=== PATIENT | female | born 1990 | race Hispanic/Latino ===

== ENCOUNTER 2018-10-25 22:02 | Observation (INO) ==
[2018-10-25 22:54] LABS: BILIRUBIN URINE NEGATIVE (NEGATIVE); BLOOD URINE 4+ (NEGATIVE); CLARITY CLEAR (CLEAR); COLOR YELLOW; GLUCOSE URINE NEGATIVE (NEGATIVE); KETONE URINE NEGATIVE (NEGATIVE); LEUKOCYTES URINE TRACE (NEGATIVE); NITRITE URINE NEGATIVE (NEGATIVE); PROTEIN URINE NEGATIVE (NEGATIVE); URINE BACTERIA 1+ /HFP; URINE EPITHELIAL CELLS <10 /HPF (<10); URINE SOURCE CLEAN CATCH; URINE WBC <10 /HPF (<10); UROBILINOGEN URINE NORMAL
[2018-10-25 22:59] LABS: AGAP 15; ALBUMIN 3.8 g/dL (3.5-5.0); ALKALINE PHOSPHATASE 73 U/L (32-104); BUN 7 mg/dL (8-22); CALCIUM 9.1 mg/dL (8.8-10.2); CHLORIDE 102 mmol/L (98-107); CK PROFILE 101 U/L (24-173); COSMO 271; CREATININE 0.6 mg/dL (0.5-0.9); ESTIMATED GFR > 60; GLUCOSE 109 mg/dL (70-104); GOT 12 U/L (10-30); GPT 8 U/L (10-36); INR 1.14; POTASSIUM 3.4 mmol/L (3.5-5.1); PROTIME 15.2 Seconds (11.0-16.0); PTT 32.5 Seconds (22.3-41.8); SODIUM 136 mmol/L (136-145); TCO2 20 mmol/L (25-35); TOTAL PROTEIN 7.8 g/dL (6.3-8.3)
[2018-10-25 23:01] LABS: BASO# 0.02 X1000 (0.0-0.2); BASO% 0.1 % (0.0-0.8); EOS# 0.01 X1000 (0.0-0.7); EOS% 0.1 % (0.0-10.0); HEMOGLOBIN 8.9 g/dL (12.0-16.0); IMM GRAN# 0.04 X1000 (0.0-0.04); IMM GRAN% 0.2 % (0.0-0.5); LYMPH# 2.14 X1000 (1.2-3.4); LYMPH% 11.3 % (20.5-51.1); MCH 21.7 PG (27-31); MCHC 31.8 g/dL (33-37); MCV 68.3 FL (81-99); MONO# 1.75 X1000 (0.11-0.59); MONO% 9.2 % (1.7-9.3); MPV 12.3 FL (7.4-10.4); NEUT# 15.03 X1000 (1.4-6.5); NEUT% 79.1 % (42.2-75.2); PLT 360 X1000 (130-400); RDW 16.3 % (11.5-14.5); WBC 18.99 X1000 (4.8-10.8)
[2018-10-25 23:02] LABS: UR AMPHETAMINES QUAL NONE DETECTED (NONE DETECT); UR BARBITUATES QUAL NONE DETECTED (NONE DETECT); UR BENZODIAZEPIN QUAL NONE DETECTED (NONE DETECT); UR COCAINE QUAL NONE DETECTED (NONE DETECT); UR METHADONE QUAL NONE DETECTED (NONE DETECT); UR METHAMPHETAMINE QUAL NONE DETECTED (NONE DETECT)
[2018-10-25 23:03] LABS: UR CANNABINOIDS QUAL NONE DETECTED (NONE DETECT); UR OPIATES QUAL NONE DETECTED (NONE DETECT); UR OXYCODONE QUAL NONE DETECTED (NONE DETECT); UR PCP QUAL NONE DETECTED (NONE DETECT); UR PROPOXYPHENE QUAL NONE DETECTED (NONE DETECT); UR TCA QUAL NONE DETECTED (NONE DETECT)
[2018-10-25 23:09] LABS: BANDS 1 % (0-1); HYPOCHROM 2+; LYMPHS 9 % (21-51); MICROCYTOSIS 2+; MONO 10 % (1-9); POIKILOCYTOSIS 2+; SEGS 80 % (42-75); TARGET CELLS 2+
[2018-10-25 23:10] LABS: LARGE PLATELETS OCCASIONAL
[2018-10-25] MEDS ORDERED: XYLOCAINE-MPF 1% INJ ONE (23:46)
[2018-10-26] MEDS ORDERED: ZOFRAN IV ONE (00:22)
[2018-10-26] MEDS ORDERED: MORPHINE IV ONE (00:22)
[2018-10-26] MEDS ORDERED: VANCOMYCIN 1 GM/NS 1 GM/250 ML IVPB IV ONE (00:31)
--- NOTE | 2018-10-26 00:44 | PROVIDER DOCUMENTATION ---
This chart was entered by Betty Birmingham Scribe, acting as scribe for Florencio Valencia MD. HPI-Rash/Wound/ReCheck - General Chief Complaint: Abscess Stated Complaint: FEMALE Time Seen by Provider: 10/25/18 22:22 Source: patient Allergies/Adverse Reactions: Allergies Allergy/AdvReac Type Severity Reaction Status Date / Time No Known Allergies Allergy Verified 06/15/18 15:26 Home Medications: Home Medication List Medication Instructions Recorded Confirmed Last Taken Type NK [No Home Medications] 10/25/18 10/25/18 Unknown History - History of Present Illness-Dermatology Nature of Presenting Problem: pt is a 28 yr old female presenting with abscess to labia, fever/chills x 3 days. Location: reports: genitalia Quality: reports: painful Severity: reports: moderate Onset/Duration: reports: 3 days ago Timing: reports: getting worse Context/Associated Symptoms: reports: tender area Identifiable cause?: No Exposure: reports: unknown cause Locality of Occurance: Home Similar Symptoms Previously?: No Recently seen or treated by another doctor?: No Review of Systems - Adult - REVIEW OF SYSTEMS - ADULT Constitutional: reports: chills, fever. denies: fatique Eyes: reports: no symptoms reported Cardiovascular: reports: no symptoms reported Respiratory: denies: shortness of breath Gastrointestinal: reports: no symptoms reported Genitourinary: denies: dysuria, frequency, flank pain Musculoskeletal: reports: no symptoms reported Integumentary: reports: skin sores/ulcer (labia) Neurological: reports: no symptoms reported Psychiatric: reports: no symptoms reported Endocrine: reports: no symptoms reported Hematologic/Lymphatic: reports: no symptoms reported Allergic/Immunologic: reports: no symptoms reported All Other Systems: Reviewed and Negative Past History - Adult - PAST MEDICAL HISTORY-ADULT Review of Records: reports: Nursing Assessment Review, Medications Reviewed, Social history reviewed & non-contributory. Major Childhood Illnesses: reports: denies history Cardiovascular: reports: denies history Respiratory: reports: denies history Gastrointestinal: reports: denies history Obstetrical/Gynecological: reports: denies history Genitourinary: reports: denies history Musculoskeletal: reports: denies history Neurological: reports: denies history Psychiatric: reports: anxiety Endocrine/Immune: reports: other (hypoglycemia) Other Conditions: reports: denies history - PRIOR SURGERIES/PROCEDURES Surgical/Procedure History: reports: - IMMUNIZATION STATUS Childhood Immunizations: See Nurse Assessment Flu Vaccine: See Nurse Assessment - FAMILY HISTORY Family History: reviewed, not pertinent - SOCIAL HISTORY Smoking: denies Substance Use: denies Living Situation: family Physical Exam-General - PHYSICAL EXAM-ADULT Initial Vital Signs Reviewed: Yes - CONSTITUTIONAL General Appearance: alert, no apparent distress - EYES Eyes: PERRL/EOMI - HEAD, EARS, NOSE, MOUTH & THROAT HENMT: normocephalic/atraumatic, moist mucous membranes - NECK Neck: full range of motion, supple, normal inspection - RESPIRATORY Respiratory: chest non-tender, lungs clear, normal breath sounds - CARDIOVASCULAR Cardiovascular: normal peripheral pulses, tachycardia (143) - GASTROINTESTINAL (ABDOMEN) Abdominal Exam: non tender, soft - LYMPHATIC Lymphatic: no adenopathy - SKIN Integumentary: normal color, normal turgor, warm/dry, other (bartholin cyst on left labia) - NEUROLOGIC Neurologic: grossly normal, no motor/sensory deficits - PSYCHIATRIC Psych/Mental Status: normal mood/affect, normal thought content, normal thought process, oriented x 3 Progress - PLAN OF CARE/RESULTS Progress/Plan/Lab Results: Vital Signs - 8 hr 10/25/18 22:09 Temperature 100.1 F H Pulse Rate 143 H Respiratory Rate 20 Blood Pressure 132/95 O2 Sat by Pulse Oximetry 99 Bedside Urine ED: Urine Bedside Start: 10/25/18 22:16 Freq: ORDERED Status: Active Protocol: Activity Type Activity Date Activity User E-Sign Co-Sign Detail Recorded Client Recorded Date Recorded By Document 10/26/18 00:15 [id number] 10/26/18 00:16 [id number] 10/26/18 00:15 Point of Care [Bedside Point of Care] -Lot # [id number] - Results Negative -Control Line Visible? Yes Laboratory Results - last 24 hr 10/25/18 10/25/18 10/25/18 22:15 22:15 22:25 WBC 18.99 H RBC 4.10 L Hgb 8.9 L Hct 28.0 L MCV 68.3 L MCH 21.7 L MCHC 31.8 L RDW Std Deviation 16.3 H Plt Count 360 MPV 12.3 H Immature Gran % (Auto) 0.2 Neut % (Auto) 79.1 H Lymph % (Auto) 11.3 L [place] % (Auto) 9.2 Eos % (Auto) 0.1 Baso % (Auto) 0.1 Immature Gran # (Auto) 0.04 Neut # (Auto) 15.03 H Lymph # (Auto) 2.14 [place] # (Auto) 1.75 H Eos # (Auto) 0.01 Baso # (Auto) 0.02 Segmented Neutrophils 80 H Band Neutrophils 1 Lymphocytes 9 L Monocytes 10 H Hypochromia 2+ Large Platelets OCCASIONAL Poikilocytosis 2+ Microcytosis 2+ Target Cells 2+ PT INR PTT (Actin FS) Sodium Potassium Chloride Carbon Dioxide Anion Gap BUN Creatinine Estimated GFR/1.73 m2 BUN/Creatinine Ratio Glucose Calculated Osmolality Calcium Total Bilirubin AST ALT Alkaline Phosphatase Creatine Kinase Troponin T Total Protein Albumin Globulin Albumin/Globulin Ratio Plasma Lactate Urine Source CLEAN CATCH Urine Color YELLOW Urine Clarity CLEAR Urine pH 7.0 Ur Specific [place] 1.000 Urine Protein NEGATIVE Urine Ketones NEGATIVE Urine Blood 4+ Urine Nitrite NEGATIVE Urine Bilirubin NEGATIVE Urine Urobilinogen NORMAL Urine Microscopic RBC 10-20 A Urine WBC TRACE A Urine Microscopic WBC <10 Ur Epithelial Cells <10 Urine Bacteria 1+ Urine Glucose NEGATIVE Urine Opiates Screen NONE DETECTED Ur Oxycodone Screen NONE DETECTED Urine Methadone Screen NONE DETECTED U Propoxyphene Qual NONE DETECTED Ur Barbituates Screen NONE DETECTED Ur Tricyclics Screen NONE DETECTED Ur Phencyclidine Scrn NONE DETECTED Ur Amphetamines Screen NONE DETECTED U Methamphetamines Scrn NONE DETECTED U Benzodiazepines Scrn NONE DETECTED Urine Cocaine Screen NONE DETECTED U Cannabinoids Screen NONE DETECTED 10/25/18 10/25/18 10/25/18 22:25 22:25 22:25 WBC RBC Hgb Hct MCV MCH MCHC RDW Std Deviation Plt Count MPV Immature Gran % (Auto) Neut % (Auto) Lymph % (Auto) [place] % (Auto) Eos % (Auto) Baso % (Auto) Immature Gran # (Auto) Neut # (Auto) Lymph # (Auto) [place] # (Auto) Eos # (Auto) Baso # (Auto) Segmented Neutrophils Band Neutrophils Lymphocytes Monocytes Hypochromia Large Platelets Poikilocytosis Microcytosis Target Cells PT 15.2 INR 1.14 PTT (Actin FS) 32.5 Sodium 136 Potassium 3.4 L Chloride 102 Carbon Dioxide 20 L Anion Gap 15 BUN 7 L Creatinine 0.6 Estimated GFR/1.73 m2 > 60 BUN/Creatinine Ratio 12 Glucose 109 H Calculated Osmolality 271 Calcium 9.1 Total Bilirubin 1.20 H AST 12 ALT 8 L Alkaline Phosphatase 73 Creatine Kinase 101 Troponin T < 0.010 Total Protein 7.8 Albumin 3.8 Globulin 4.0 Albumin/Globulin Ratio 1.0 Plasma Lactate Urine Source Urine Color Urine Clarity Urine pH Ur Specific [place] Urine Protein Urine Ketones Urine Blood Urine Nitrite Urine Bilirubin Urine Urobilinogen Urine Microscopic RBC Urine WBC Urine Microscopic WBC Ur Epithelial Cells Urine Bacteria Urine Glucose Urine Opiates Screen Ur Oxycodone Screen Urine Methadone Screen U Propoxyphene Qual Ur Barbituates Screen Ur Tricyclics Screen Ur Phencyclidine Scrn Ur Amphetamines Screen U Methamphetamines Scrn U Benzodiazepines Scrn Urine Cocaine Screen U Cannabinoids Screen 10/25/18 22:25 WBC RBC Hgb Hct MCV MCH MCHC RDW Std Deviation Plt Count MPV Immature Gran % (Auto) Neut % (Auto) Lymph % (Auto) [place] % (Auto) Eos % (Auto) Baso % (Auto) Immature Gran # (Auto) Neut # (Auto) Lymph # (Auto) [place] # (Auto) Eos # (Auto) Baso # (Auto) Segmented Neutrophils Band Neutrophils Lymphocytes Monocytes Hypochromia Large Platelets Poikilocytosis Microcytosis Target Cells PT INR PTT (Actin FS) Sodium Potassium Chloride Carbon Dioxide Anion Gap BUN Creatinine Estimated GFR/1.73 m2 BUN/Creatinine Ratio Glucose Calculated Osmolality Calcium Total Bilirubin AST ALT Alkaline Phosphatase Creatine Kinase Troponin T Total Protein Albumin Globulin Albumin/Globulin Ratio Plasma Lactate 1.4 Urine Source Urine Color Urine Clarity Urine pH Ur Specific [place] Urine Protein Urine Ketones Urine Blood Urine Nitrite Urine Bilirubin Urine Urobilinogen Urine Microscopic RBC Urine WBC Urine Microscopic WBC Ur Epithelial Cells Urine Bacteria Urine Glucose Urine Opiates Screen Ur Oxycodone Screen Urine Methadone Screen U Propoxyphene Qual Ur Barbituates Screen Ur Tricyclics Screen Ur Phencyclidine Scrn Ur Amphetamines Screen U Methamphetamines Scrn U Benzodiazepines Scrn Urine Cocaine Screen U Cannabinoids Screen Orders Category Date Time Status Admit - [facility] Routine [id number] 10/26/18 00:37 Active Activity - Up Ad Laura ORDERED Care 10/26/18 00:37 Active Cardiac Monitoring DIRECTED Care 10/25/18 22:31 Active ED: Urine Bedside ORDERED Care 10/25/18 22:16 Active I and D Set up DIRECTED Care 10/25/18 23:46 Active Notify MD of + Sepsis Screen NOW Care 10/25/18 22:31 Active Notify Physician As Ordered Care 10/25/18 22:31 Active Saline Loc DIRECTED Care 10/26/18 00:37 Active Vital Signs Order ROUTINE Care 10/26/18 00:37 Active Regular Diet Diet 10/26/18 00:39 Active BLOOD CULTURE [BLDCUL] Stat Lab 10/25/18 22:31 Ordered CBC WITH DIFF [HEME] Stat Lab 10/25/18 22:25 Completed CK PROFILE [SP CHEM] Stat Lab 10/25/18 22:25 Completed COMPREHENSIVE METABOLIC PANEL [CHEM] Stat Lab 10/25/18 22:25 Completed LACTATE, PLASMA [CHEM] Q3H Lab 10/25/18 22:25 Completed PROTIME WITH INR [COAG] Stat Lab 10/25/18 22:25 Completed PTT [COAG] Stat Lab 10/25/18 22:25 Completed TROPONIN T Stat Lab 10/25/18 22:25 Completed UIBC W TOTAL IRON [CHEM] Stat Lab 10/26/18 00:25 Ordered URINE CULTURE [RM] Routine Lab 10/25/18 22:54 Ordered URINE DRUG SCREEN PL Stat Lab 10/25/18 22:15 Completed WOUND CULTURE INC GRAM STAIN [RM] Routine Lab 10/26/18 00:22 Ordered urinalysis [URINALYSIS PL W/POSS RFLX CULT] [URINALYSIS Lab 10/25/18 22:15 Completed ] Stat 0.9% Sodium Chloride Inj [Ns] 2,000 ml Med 10/26/18 00:45 Active IV 250 mls/hr Lidocaine 1% Pf [Xylocaine-Mpf 1%] Med 10/25/18 23:46 Discontinued 5 ml INJ NOW ONE Morphine Med 10/26/18 00:22 Discontinued 4 mg IV NOW ONE Ondansetron [Zofran] Med 10/26/18 00:22 Discontinued 4 mg IV NOW ONE Vancomycin 1 gm/Ns Med 10/26/18 00:31 Active 1 gm in 250 ml IV NOW Oxygen Device Stat Oth 10/25/18 22:31 Active Transfer/Admit Order [TRANSFER] Routine Transfer 10/26/18 00:41 Ordered Result Diagrams: 10/25/18 22:25 10/25/18 22:25 - CONSULTS/PCP/HOSPITALIST Notification #1 *Consult/PCP/Hospitalist*: cheathem Time Discussed: 00:44 Consult Disposition: Admit Procedures - INCISION & DRAINAGE Site: left labia Abscess Type: Bartholin's Cyst Prepped with: Sandy Aparicio Anesthetic: 1%, Lidocaine/Xylocaine Volume of Anesthetic (ml's): 5 Blade Size: 11 Packing placed?: No (word catheter placed) Drainage: Large Amount, Purulent Departure - Departure Date of Disposition Decision: 10/26/18 Time of Disposition Decision: 00:42 DIAGNOSIS: Sepsis Qualifiers: Sepsis type: sepsis due to unspecified organism Qualified Code(s): A41.9 - Sepsis, unspecified organism Disposition: ADMITTED INPATIENT 09 Certified Medical Emergency: Emergent Condition: Stable Additional Freetext Instructions: ED Follow Up Instructions: You have been treated by a care provider in the Emergency Department. These instructions are being provided to you so you can have an understanding of how to care for yourself upon discharge. Upon discharge from the Emergency Department, you are responsible for making arrangements for follow-up care by a physician of your choice. Take all prescribed medications as directed. Return to the Emergency Department immediately for any new or worsening symptoms. You may call the Physician Referral phone number at [phone] to obtain a list of Physicians who are taking new patients. Referrals and Follow-Ups: None,PCP [Primary Care Provider] - Discharge Education: Incision and Drainage, Care After, Bartholin Cyst or Abscess, [id number] - Critical Care Note This patient required my direct & personal management of CC.: No Attestation - Physician/ GENE Attestation The physician spent face to face time with patient:: Yes Advanced Practice Provider documentation review:: Supervising physician onsite and consulted in the evaluation and care of this patient. The physician did have a face to face encounter with the patient. This chart was documented by the indicated scribe, (Betty Birmingham Scribe) and accurately reflects the services I performed and decisions made by me, Florencio Valencia MD, as attested by the provider's signature.
[2018-10-26] MEDS: NS 2,000 ML IV SCH ×4 (00:52→18:55)
[2018-10-26 01:08] LABS: IRON SATURATION 3 %; TIBC 389 ug/dL; TOTAL IRON 13 ug/dL (49-151); UNBOUND IRON 376 ug/dL (112-346)
[2018-10-26] MEDS ORDERED: ZOFRAN IV PRN (02:38)
[2018-10-26] MEDS ORDERED: MORPHINE IV PRN (02:38)
[2018-10-26] MEDS: TYLENOL PO PRN ×2 (02:50→09:56)
[2018-10-26] MEDS ORDERED: ZITHROMAX PO ONE (08:44)
[2018-10-26] MEDS ORDERED: FLAGYL PO ONE (08:45)
[2018-10-26] MEDS ORDERED: ROCEPHIN 1 GM in NS 50 ML IV SCH (08:45)
[2018-10-26 12:03] LABS: AGAP 13; ALKALINE PHOSPHATASE 66 U/L (32-104); BUN 6 mg/dL (8-22); CALCIUM 7.9 mg/dL (8.8-10.2); CHLORIDE 108 mmol/L (98-107); COSMO 282; CREATININE 0.5 mg/dL (0.5-0.9); ESTIMATED GFR > 60; GLUCOSE 119 mg/dL (70-104); GOT 53 U/L (10-30); GPT 13 U/L (10-36); SODIUM 142 mmol/L (136-145); TCO2 21 mmol/L (25-35); TOTAL PROTEIN 6.7 g/dL (6.3-8.3)
[2018-10-26 12:13] LABS: HEMATOCRIT 24.7 % (37.0-47.0); HEMOGLOBIN 7.8 g/dL (12.0-16.0); MCH 21.8 PG (27-31); MCHC 31.6 g/dL (33-37); MPV 11.6 FL (7.4-10.4); RBC 3.58 XMIL (4.2-5.4); RDW 16.2 % (11.5-14.5); WBC 13.99 X1000 (4.8-10.8)
[2018-10-26 13:40] VITALS: BP 111/67
[2018-10-26] MEDS ORDERED: KLOR-CON PO ONE (15:48)
--- NOTE | 2018-10-26 15:52 | HISTORY AND PHYSICAL ---
CHIEF COMPLAINT: Abscess to labia. HISTORY OF PRESENT ILLNESS: This is a 28-year-old female who presented to the emergency room complaining of 3 days of left-sided labial pain with fevers and chills. She states that this started out as a small area about 4 days ago that she noticed after shaving and that it has gradually increased to the point that she was unable to walk without significant pain. She also reported a fever of 100 to 102 over the last 3 days. She denied any vaginal or labial drainage. PAST MEDICAL HISTORY: Anxiety. PAST SURGICAL HISTORY: . SOCIAL HISTORY: She denies alcohol, tobacco, or illicit drug use. ALLERGIES: No known drug allergies. HOME MEDICATIONS: None. REVIEW OF SYSTEMS: Discussed with the patient with pertinent positives stated in the HPI. She denied any syncope, dizziness, chest pain, palpitations, shortness of breath, cough; any night sweats; any nausea, vomiting, diarrhea, constipation, black or bloody vomitus or stools; any hematuria, dysuria, frequency, urgency. PHYSICAL EXAMINATION: GENERAL: This is a 28-year-old female who is sitting up in the bed in no distress. VITAL SIGNS: Blood pressure is 111/67 with a heart rate of 95, respirations are 18, temperature is 98 degrees with room air saturations 100%. EYES: Pupils equal, round, react to light. EOMs are intact. Sclerae anicteric. HEENT: Head is normocephalic, atraumatic. Mucous membranes are moist. NECK: Supple with trachea midline. CARDIOVASCULAR: Regular rate and rhythm. S1, S2 appreciated. She has no lower extremity edema with peripheral pulses palpable x4 extremities. PULMONARY: Breath sounds are clear with no increased work of breathing noted. Chest rises and falls symmetrically with respiration. GASTROINTESTINAL: Abdomen is soft, nontender, nondistended with bowel sounds in all 4 quadrants. SKIN: Warm and dry. GENITOURINARY: She is status post I D of a left Bartholin cyst with Word catheter noted in place with serous drainage. NEUROLOGIC: She is alert and oriented x3. LABORATORY DATA: WBC is 18.9 with hemoglobin 8.9, hematocrit 28, platelets 360,000. Sodium 136, potassium 3.4, BUN 7, creatinine 0.6 with a glucose of 109. Urinalysis reveals 4+ blood with 10 to 20 microscopic red blood cells. Urine drug screen reveals none detected. Blood cultures, urine culture and wound culture are pending. The urine was negative ASSESSMENT AND PLAN: 1. Bartholin's cyst. Word catheter is in place. We will start sitz baths 4 times a day and monitor. Of note, there is an area surrounding Word catheter that is erythemic about quarter sized. She has no fluctuance noted. No tract can be felt. We will treat for STDs and follow. 2. Leukocytosis. She was given vancomycin in the emergency room as well as Rocephin. We will continue the Rocephin. We will add Zithromax as she does have a cough. Of note, she will be treated with a gram of azithromycin, 2 g of Flagyl, as well as continued Rocephin. We will monitor. Dictated by ELVIA Ochoa for Isael Martines MD This chart was documented by, ELVIA Ochoa and accurately reflects the services performed, treatment plan and medical decisions as attested by the providers signature Isael Martines MD. cc: ELVIA Ochoa MD
--- NOTE | 2018-10-26 17:23 | CONSULTATION ---
DATE OF CONSULTATION: 10/26/2018 REASON FOR CONSULTATION: Replacement of Word catheter. CONSULTATION NOTE: Patient is a 28-year-old, G1, P0, admitted through the emergency room on 10/25/2018 for complaints of labial abscess and fevers and chills for 3 days. The patient does shave her genital area and reports that it started out as a little tenderness and then developed into more of a boil mass that was tender. Temperature in the emergency room was 100.1 with a white count of 18.99. She was diagnosed with a Bartholin abscess for which lidocaine was injected and the Bartholin gland was incised in the emergency room and Word catheter was placed. Large amount of purulent drainage was obtained. Drainage was cultured. Culture itself is still pending. Blood cultures were also obtained and still pending at present time. She was admitted to the hospital and treated with ceftriaxone as well as Zithromax to cover STD. Currently placed on vancomycin per hospitalist/nurse practitioner. Vital signs today revealed T-max of a 100.3 degrees at 4 a.m., temperature current 98, pulse rate 109, blood pressure 108/69, 100% on room air. Repeat CBC this morning revealed white count dropped from 18.99 to 13.99, hemoglobin currently at 7.8, hematocrit 24.7, platelet count 264,000. There has been no extension of the labial abscess and it has drained quite well. However the patient was up to the restroom and the Word catheter fell out. I was asked to replace Word catheter. Upon my evaluation patient alert and oriented x3. No acute distress. The patient looks to be doing quite well. On examination, no lymphadenopathy palpated. There is mild swelling of the left labia that was noted but no tautness to the skin itself. Minimal erythema lower half of the labia to mid labia. On palpation there is no tracking of any abscess into the vaginal vault. I could see where the incision was made on the medial surface of the labia towards the vaginal introitus. There is some granulation starting at the site of incision. There is no increase in surrounding erythema noted on palpation. I did not feel any residual material within the cyst cavity but I could feel where the cyst cavity had been and collapsed. The patient overall tolerated palpation quite well, was not overly or exquisitely tender. Washed the area with Betadine and attempted to place Word catheter however balloon would not inflate due to hole in balloon. Another Word catheter was brought in which also had a leak in the balloon. As patient was doing well and there was no extensive erythema, tracking edema, or pain and seemed to be completely drained decision was made to just proceed with sitz baths for drainage as there was no active pus or drainage noted. The patient had a slight cough and she states that has been present for around 5 to 7 days. Nurse practitioner Jessica William was present and aware. cc: Niharika Miller MD MTDD
[2018-10-26] MEDS ORDERED: ICAR-C PO SCH (21:00)
--- NOTE | 2018-10-26 22:16 | DISCHARGE SUMMARY ---
ADMISSION DATE: 10/26/2018 DISCHARGE DATE: 10/26/2018 DISCHARGE DIAGNOSIS: 1. Bartholin cyst with abscess improving. 2. Leukocytosis improved. 3. Hyperkalemia improved. 4. Others. CONSULTATIONS: MOUNTER SAXOPHONES PROCEDURES: I and D Bartholin cyst. BRIEF HOSPITAL COURSE: Patient was admitted to the hospital treated with antibiotics. Thankfully on discharge she is awake, alert, she is in no distress. MOUNTER SAXOPHONES is recommended sitz baths. DISPOSITION: Patient will be discharged on antibiotics. She will continue sitz baths at home. Will follow up outpatient with MOUNTER SAXOPHONES in the next few days for reevaluation. cc: Isael Martines MD
--- NOTE | 2018-10-26 22:31 | HISTORY AND PHYSICAL ---
ADDENDUM: Patient seen and examined by myself. Full note dictated and discussed with nurse practitioner. Patient presented to the hospital with pain and an abscess to her labia. She has been having fevers and chills. This was lanced in the ER. We will admit her, place her on antibiotics and follow. Please see full note. cc: Isael Martines MD
== END 2018-10-26 19:20 | disposition home or self-care (01) ==
LOC: P.ED 22:02 → P.MEDSURG 10-26 01:03 → INTOOBSV 10-26 01:03
PROVIDERS: ATTEND Family Medicine
CPT/HCPCS: 80053; 80104; 80301; 80305; 81001; 81025; 82550; 83540; 83550; 83605; 84484; 85025; 85027; 85610; 85730; 87040; 87070; 87077; 87088; 94761; 96365; 96375; 99285; A9270; G0431; G0434; G0477; J0696; J2270; J2405; J3370; J7030

== ENCOUNTER 2019-08-27 04:48 | Inpatient (IN) ==
--- NOTE | 2019-08-26 22:56 | HISTORY AND PHYSICAL ---
HISTORY OF PRESENT ILLNESS: Ms. Carter is a 29-year-old G2, P1-0-0-1 at 39 weeks gestation, who presents to labor and delivery for scheduled repeat delivery. The patient reports good movement. Denies contractions, leakage of fluid or bleeding. CURRENT MEDICATIONS: vitamins, ferrous sulfate 325 mg p.o. daily. ALLERGIES: No known drug allergies. PAST MEDICAL HISTORY: Anxiety, anemia, Bartholin gland cyst, hypoglycemia. PAST SURGICAL HISTORY: delivery x1. OBSTETRICAL HISTORY: G2, P1-0-0-1. One full-term delivery secondary to nonreassuring heart tracing. GYNECOLOGIC HISTORY: Denies STD exposure in current . Initial RPR was negative; however, second RPR was found to be positive with a 1:4 ratio. Confirmatory treponemal tests found to be negative. Also in current the patient is status post 3 incisions and drainages of a left Bartholin cyst. SOCIAL HISTORY: Denies tobacco, alcohol or drug use. FAMILY HISTORY: Noncontributory. PHYSICAL EXAMINATION: VITAL SIGNS: Weight 185 pounds, height 5 feet 1 inch, body mass index 34.9 kg/m2. Blood pressure 122/78. GENERAL: No acute distress. Alert, awake and oriented x3. CARDIOVASCULAR: Regular rate and rhythm. Positive S1, S2. RESPIRATORY: Clear to auscultation bilaterally. Negative rhonchi, rales or wheezing. ABDOMEN: Gravid, soft, nontender. PELVIS: Sterile vaginal exam: The patient is closed, thick and high. EXTREMITIES: Negative calf tenderness. Edema 1+ in the lower extremities. LABORATORY DATA: GBS negative. RPR positive 1:4. Confirmatory treponemal test negative. ASSESSMENT: Ms. Carter is a 29-year-old G2, P1-0-0-1 at 39 weeks gestation, who presents to labor and delivery for repeat section. PLAN: 1. Admit to labor and delivery. 2. Obtain routine labs for scheduled repeat delivery. 3. IV antibiotics for prophylaxis. 4. monitoring preprocedure and post spinal procedure. 5. Patient counseled on risks, benefits and alternatives to procedure. Risks not limited to bleeding, infection or injury to surrounding organs including the bowel, bladder, ureters or blood vessels, and/or injury to fetus. The patient understands risks and agrees to said procedure.
[2019-08-27] MEDS ORDERED: PEPCID PO ONE (05:01)
[2019-08-27] MEDS ORDERED: REGLAN PO ONE (05:01)
[2019-08-27] MEDS ORDERED: KEFZOL 2 GM/D5W 2 GM/50 ML IVPB IV ONE (05:07)
[2019-08-27] MEDS ORDERED: BICITRA PO ONE (05:09)
[2019-08-27 05:19] LABS: URINE SOURCE VOIDED
[2019-08-27] MEDS: LR 1,000 ML IV SCH ×3 (05:20→17:24)
[2019-08-27 05:25] LABS: BILIRUBIN URINE NEGATIVE (NEGATIVE); BLOOD URINE MODERATE (NEGATIVE); COLOR YELLOW; GLUCOSE URINE NEGATIVE (NEGATIVE); KETONE URINE NEGATIVE (NEGATIVE); LEUKOCYTES URINE LARGE (NEGATIVE); NITRITE URINE NEGATIVE (NEGATIVE); PROTEIN URINE NEGATIVE (NEGATIVE); SP GRAVITY URINE 1.017; TURBIDITY URINE HAZY (CLEAR); UROBILINOGEN URINE NORMAL (NORMAL)
[2019-08-27 05:39] LABS: UR AMPHETAMINES QUAL NONE DETECTED (NONE DETECT); UR BARBITUATES QUAL NONE DETECTED (NONE DETECT); UR BENZODIAZEPIN QUAL NONE DETECTED (NONE DETECT); UR CANNABINOIDS QUAL NONE DETECTED (NONE DETECT); UR COCAINE QUAL NONE DETECTED (NONE DETECT); UR METHADONE QUAL NONE DETECTED (NONE DETECT); UR OPIATES QUAL PRESUMPTIVE POSITIVE (NONE DETECT); UR OXYCODONE QUAL NONE DETECTED (NONE DETECT); UR PCP QUAL NONE DETECTED (NONE DETECT)
[2019-08-27 05:58] LABS: BASO# 0.02 X1000 (0.0-0.2); BASO% 0.2 % (0.0-0.8); EOS# 0.05 X1000 (0.0-0.7); EOS% 0.5 % (0.0-10.0); HEMATOCRIT 31.7 % (37.0-47.0); HEMOGLOBIN 9.6 g/dL (12.0-16.0); IMM GRAN# 0.02 X1000 (0.0-0.04); IMM GRAN% 0.2 % (0.0-0.5); LYMPH# 2.52 X1000 (1.2-3.4); LYMPH% 24.7 % (20.5-51.1); MCH 21.2 PG (27-31); MCHC 30.3 g/dL (33-37); MCV 70.1 FL (81-99); MONO# 0.74 X1000 (0.11-0.59); MONO% 7.3 % (1.7-9.3); MPV 12.3 FL (7.4-10.4); NEUT# 6.84 X1000 (1.4-6.5); NEUT% 67.1 % (42.2-75.2); PLT 306 X1000 (130-400); RBC 4.52 XMIL (4.2-5.4); RDW 20.7 % (11.5-14.5); WBC 10.19 X1000 (4.8-10.8)
[2019-08-27 06:33] LABS: LYMPHS 21 % (21-51); MONO 2 % (1-9); SEGS 77 % (42-75)
[2019-08-27 06:34] LABS: ANISOCYTOSIS 1+; HYPOCHROM 2+; MICROCYTOSIS 3+
[2019-08-27] MEDS ORDERED: DURAMORPH ONE (06:35)
[2019-08-27] MEDS ORDERED: FENTANYL ONE (06:44)
[2019-08-27] MEDS ORDERED: SODIUM CHLORIDE 0.9% 10 ML ONE (06:45)
[2019-08-27] MEDS ORDERED: DECADRON ONE ×2 (06:45→06:46)
[2019-08-27] MEDS ORDERED: ZOFRAN ONE ×2 (06:46)
[2019-08-27] MEDS ORDERED: ROBINUL ONE (06:46)
[2019-08-27] MEDS ORDERED: PITOCIN ONE ×2 (07:03→07:21)
[2019-08-27] MEDS ORDERED: NEO-SYNEPHRINE ONE (07:06)
[2019-08-27 07:10] LABS: UR AMPHETAMINES QUAL NONE DETECTED (NONE DETECT); UR BARBITUATES QUAL NONE DETECTED (NONE DETECT); UR BENZODIAZEPIN QUAL NONE DETECTED (NONE DETECT); UR CANNABINOIDS QUAL NONE DETECTED (NONE DETECT); UR COCAINE QUAL NONE DETECTED (NONE DETECT); UR METHADONE QUAL NONE DETECTED (NONE DETECT); UR OPIATES QUAL PRESUMPTIVE POSITIVE (NONE DETECT); UR OXYCODONE QUAL NONE DETECTED (NONE DETECT); UR PCP QUAL NONE DETECTED (NONE DETECT)
[2019-08-27] MEDS ORDERED: VERSED ONE (07:15)
[2019-08-27 07:44] LABS: RPR WEAKLY REACTIVE (NONREACTIVE)
[2019-08-27] MEDS ORDERED: TORADOL ONE (08:10)
[2019-08-27] MEDS ORDERED: AMBIEN PO PRN (08:18)
[2019-08-27] MEDS ORDERED: M-M-R II VACCINE SUBQ ONE (08:18)
[2019-08-27] MEDS ORDERED: BOOSTRIX VACCINE IM ONE (08:18)
[2019-08-27] MEDS ORDERED: PHENERGAN IM PRN (08:18)
[2019-08-27] MEDS ORDERED: PITOCIN IM PRN (08:18)
[2019-08-27] MEDS ORDERED: DEMEROL IM PRN (08:18)
[2019-08-27] MEDS ORDERED: ATARAX PO PRN (08:18)
[2019-08-27] MEDS ORDERED: DEMEROL PO PRN ×2 (08:18)
[2019-08-27] MEDS ORDERED: HYDROXYZINE IM PRN (08:18)
[2019-08-27] MEDS ORDERED: PITOCIN 20 UNITS/NS 20 UNITS/1,000 ML IV.SOLN IV ONE (08:18)
[2019-08-27] MEDS ORDERED: DULCOLAX PR PRN (08:18)
--- NOTE | 2019-08-27 08:30 | H&P REVIEW ---
H&P Update H&P Review: H&P was reviewed and patient was examined, No change has occurred in the patient's condition
[2019-08-27] MEDS: MYLICON PO SCH ×4 (10:04→20:13)
[2019-08-27] MEDS ORDERED: BENADRYL IV PRN (11:15)
[2019-08-27] MEDS ORDERED: NARCAN INJ PRN (11:15)
[2019-08-27] MEDS ORDERED: ZOFRAN ODT PO PRN (11:15)
[2019-08-27] MEDS ORDERED: ZOFRAN IV PRN ×2 (11:15)
[2019-08-27] MEDS ORDERED: TYLENOL PO SCH (11:30)
[2019-08-27] MEDS: TYLENOL PO SCH ×2 (12:19→18:13)
[2019-08-27] MEDS: TORADOL IV SCH ×2 (14:34→20:13)
[2019-08-27] MEDS: MYLICON PO PRN (15:37)
[2019-08-27] MEDS: PITOCIN 10 UNITS/NS 1,000 ML IV SCH (19:22)
[2019-08-27] MEDS: PERICOLACE PO SCH (20:13)
[2019-08-28] MEDS: LR 1,000 ML IV SCH ×2 (00:47→06:07)
[2019-08-28] MEDS: TYLENOL PO SCH ×2 (00:47→06:06)
[2019-08-28] MEDS: TORADOL IV SCH (02:52)
[2019-08-28] MEDS: PITOCIN 10 UNITS/NS 1,000 ML IV SCH (02:54)
[2019-08-28 07:19] LABS: BASO# 0.02 X1000 (0.0-0.2); BASO% 0.2 % (0.0-0.8); EOS# 0.02 X1000 (0.0-0.7); EOS% 0.2 % (0.0-10.0); HEMATOCRIT 23.9 % (37.0-47.0); HEMOGLOBIN 7.1 g/dL (12.0-16.0); IMM GRAN# 0.03 X1000 (0.0-0.04); IMM GRAN% 0.3 % (0.0-0.5); LYMPH# 2.06 X1000 (1.2-3.4); LYMPH% 17.8 % (20.5-51.1); MCH 21.1 PG (27-31); MCHC 29.7 g/dL (33-37); MCV 71.1 FL (81-99); MONO# 1.01 X1000 (0.11-0.59); MONO% 8.7 % (1.7-9.3); NEUT# 8.45 X1000 (1.4-6.5); NEUT% 72.8 % (42.2-75.2); PLT 228 X1000 (130-400); RBC 3.36 XMIL (4.2-5.4); RDW 20.1 % (11.5-14.5); WBC 11.59 X1000 (4.8-10.8)
--- NOTE | 2019-08-28 08:16 | OB/GYN PROGRESS NOTE ---
Progress Note [employer] - . Patient Problems: Current Active Problems Problem Status Onset Status post delivery Acute Anemia of mother in , condition Acute [employer] Progress Note: Vital Signs - 24 hr 08/27/19 08:10 08/27/19 08:20 08/27/19 08:30 Temperature 96.7 F L Pulse Rate 84 71 70 Respiratory Rate 16 16 16 Blood Pressure Blood Pressure [Right Arm] 110/65 113/70 109/64 O2 Sat by Pulse Oximetry 95 96 97 08/27/19 08:40 08/27/19 08:50 08/27/19 09:00 Temperature Pulse Rate 71 86 68 Respiratory Rate 16 16 16 Blood Pressure Blood Pressure [Right Arm] 112/61 112/61 114/73 O2 Sat by Pulse Oximetry 97 97 97 08/27/19 09:10 08/27/19 10:05 08/27/19 12:37 Temperature Pulse Rate 74 78 70 Respiratory Rate 16 14 Blood Pressure 113/59 Blood Pressure [Right Arm] 113/59 O2 Sat by Pulse Oximetry 100 97 96 08/27/19 16:07 08/27/19 17:21 08/27/19 20:10 Temperature 99.0 F 98.8 F Pulse Rate 74 80 74 Respiratory Rate 16 16 18 Blood Pressure 116/60 111/67 Blood Pressure [Right Arm] O2 Sat by Pulse Oximetry 96 95 95 08/28/19 00:49 08/28/19 04:21 08/28/19 07:52 Temperature 97.4 F L 97.5 F L 98.4 F Pulse Rate 76 70 76 Respiratory Rate 18 18 16 Blood Pressure 102/57 97/56 112/68 Blood Pressure [Right Arm] O2 Sat by Pulse Oximetry 95 94 L 94 L Laboratory Results - last 24 hr 08/27/19 08/27/19 08/27/19 05:20 05:20 05:20 WBC 10.19 RBC 4.52 Hgb 9.6 L Hct 31.7 L MCV 70.1 L MCH 21.2 L MCHC 30.3 L RDW Std Deviation 20.7 H Plt Count 306 MPV 12.3 H Immature Gran % (Auto) 0.2 Neut % (Auto) 67.1 Lymph % (Auto) 24.7 Bonner % (Auto) 7.3 Eos % (Auto) 0.5 Baso % (Auto) 0.2 Immature Gran # (Auto) 0.02 Neut # (Auto) 6.84 H Lymph # (Auto) 2.52 Bonner # (Auto) 0.74 H Eos # (Auto) 0.05 Baso # (Auto) 0.02 Segmented Neutrophils 77 H Lymphocytes 21 Monocytes 2 Hypochromia 2+ Anisocytosis 1+ Microcytosis 3+ RPR Titer 1:1 RPR WEAKLY REACTIVE A Blood Type B POSITIVE Antibody Screen POSITIVE Antibody Identification Cold Antibody Enhanced Crossmatch See Detail 08/28/19 06:05 WBC 11.59 H RBC 3.36 L Hgb 7.1 L D Hct 23.9 L D MCV 71.1 L MCH 21.1 L MCHC 29.7 L RDW Std Deviation 20.1 H Plt Count 228 MPV Not Reportable Immature Gran % (Auto) 0.3 Neut % (Auto) 72.8 Lymph % (Auto) 17.8 L Bonner % (Auto) 8.7 Eos % (Auto) 0.2 Baso % (Auto) 0.2 Immature Gran # (Auto) 0.03 Neut # (Auto) 8.45 H Lymph # (Auto) 2.06 Bonner # (Auto) 1.01 H Eos # (Auto) 0.02 Baso # (Auto) 0.02 Segmented Neutrophils Not Reportable Lymphocytes HOUSEKEEPING AID Monocytes HOUSEKEEPING AID Hypochromia Anisocytosis Microcytosis RPR Titer RPR Blood Type Antibody Screen Antibody Identification Enhanced Crossmatch POD #1 S: Evelyn feels well. She has tolerated clear liquids, notes good analgesia with oral meds, and denies heavy vaginal bleeding, nausea, vomtiing, fever, or chills. She has not voided yet. O: VSS AF as above. Postop worsening of anemia of noted, asymptomatic thus far EXAM NAD HEENT Nl Chest Nl resp effort. clear to bases CVS RRR Abd soft, nontender. Binder in place. Bandage and pressure dressing clean dry and intact Funud firm, U-2, nontender Ext no tenderness or excessive edema Neruop intact A: All Active Problems (Last Reviewed 08/23/19 @ 18:29 by Nicholas Patton DO) Status post delivery (Acute) Anemia of mother in , condition (Acute) Bartholin gland cyst (Acute) PLAN: Advance diet Ambulate, shower with precautions discussed for orthostasis in setting of anemia Oral iron therapy Consider discharge tomorrow if stable
[2019-08-28] MEDS ORDERED: LR 1,000 ML IV SCH (08:18)
--- NOTE | 2019-08-28 08:58 | OPERATIVE NOTE ---
PROCEDURE DATE: 08/27/2019 SURGEON: Nicholas Patton DO. 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 PREOPERATIVE DIAGNOSES: 1. Intrauterine at 39 weeks gestation. 2. Previous delivery x1. POSTOPERATIVE DIAGNOSES: 1. Intrauterine at 39 weeks gestation. 2. Previous delivery x1. PROCEDURE PERFORMED: Repeat low transverse section. ANESTHESIA: Spinal. ESTIMATED BLOOD LOSS: 700 mL. COMPLICATIONS: None. DESCRIPTION OF PROCEDURE: The patient was taken to the OR where a time-out was performed to confirm correct patient and correct procedure. Spinal anesthesia was adequately established, and prophylactic intravenous antibiotics was administered. The patient was then placed in a dorsal supine position with a left tilt of the hip. The patient was then prepped and draped in the usual sterile fashion for a Pfannenstiel skin incision. An incision was then made in the skin with a surgical scalpel, and sharp dissection was carried out over subsequent layers of tissue including the fascia followed by the Bovie electrocautery for hemostasis. The fascia was incised at the midline and the fascial incision was extended bilaterally using the Bovie electrocautery. The inferior edge of the fascial incision was grasped with Tiara clamps, tented up, and the underlying rectus muscle was dissected off bluntly using the Bovie electrocautery. Attention was then turned to the superior edge which was grasped with Tiara clamps, tented up, and the underlying rectus muscles were dissected off bluntly using the Bovie electrocautery. The rectus muscles were then divided at the midline and the peritoneum was identified, tented up with hemostats at its upper margin, taking care to avoid the bladder and entered bluntly at its superior margin. The peritoneal incision was extended superiorly and inferiorly using the Bovie electrocautery with good visualization screening of the bladder. The bladder blade was inserted and the vesicouterine peritoneum was identified, grasped with smooth pickups and cut laterally to both sides using the Metzenbaum scissors. A bladder flap was then created using sharp dissection. The bladder blade was reinserted, and a transverse incision was made in the lower uterine segment using the scalpel. Uterine incision was extended bilaterally with blunt dissection. The amniotic sac was entered, and the amniotic fluid noted to be thick with meconium. The surgeon's hand was placed into the uterine cavity. The head was identified, elevated into the abdomen and delivered through the uterine incision with the assistance of fundal pressure. The infant was examined for nuchal cord. No nuchal cord was identified. The infant was then delivered with traction and the assistance of fundal pressure. The 's oral and nasal passages were bulb suctioned. On delivery, the cord was clamped and cut. The infant was passed off the table to the oven tender staff for further care. Cord blood was obtained for analysis and routine blood testing. The placenta delivered via manual extraction intact with a three-vessel cord. Oxytocin was administered by IV infusion to enhance uterine contraction. The uterus was exteriorized and cleared of all clots and remaining products of conception. The uterine incision was reapproximated using 0 Monocryl suture in a running locked fashion. A 2nd 0 Monocryl stitch was used for non hemostatic areas to reinforce hemostasis in a figure of 8 stitch fashion. Good hemostasis was confirmed. The uterine incision had Surgicel applied to it to reinforce hemostasis. Uterus was then placed into the abdomen and the pericolic gutters were cleared of all clots. The fascia was reapproximated using 0 Vicryl absorbable suture in a running locked fashion. The fascial defect below the fascial surface was identified and repaired using 0 Vicryl in a running nonlocked fashion. The subcutaneous fat was reapproximated using 2-0 plain in a running nonlocked fashion. The skin was reapproximated using 4-0 Monocryl on a Bassam stitch insert. All needle, sponge, and instrument counts were noted to be correct x2 at the end of the procedure. The patient tolerated the procedure well and was transferred to the recovery room in stable condition.
[2019-08-28] MEDS: FERROUS SULFATE PO SCH (09:58)
[2019-08-28] MEDS: PERCOCET-5 PO PRN ×2 (09:59→18:36)
[2019-08-28] MEDS: MYLICON PO SCH ×4 (10:01→21:40)
[2019-08-28] MEDS: MOTRIN PO PRN ×2 (12:25→21:40)
[2019-08-28] MEDS: PERICOLACE PO SCH (21:40)
[2019-08-29] MEDS: MYLICON PO PRN ×2 (04:59→06:47)
[2019-08-29] MEDS: PERCOCET-5 PO PRN (06:46)
[2019-08-29] MEDS: MOTRIN PO PRN (06:47)
--- NOTE | 2019-08-29 07:32 | OB/GYN PROGRESS NOTE ---
Progress Note [employer] - . Patient Problems: Current Active Problems Problem Status Onset Status post delivery Acute Anemia of mother in , condition Acute [employer] Progress Note: Vital Signs - 24 hr 08/28/19 07:52 08/28/19 12:29 08/28/19 16:10 Temperature 98.4 F 98.7 F 98.3 F Pulse Rate 76 96 H 93 H Respiratory Rate 16 16 18 Blood Pressure 112/68 105/72 122/76 O2 Sat by Pulse Oximetry 94 L 98 98 08/28/19 21:45 08/29/19 00:20 08/29/19 05:00 Temperature 98.0 F 97.6 F Pulse Rate 95 H 82 101 H Respiratory Rate 18 16 18 Blood Pressure 134/72 110/66 123/68 O2 Sat by Pulse Oximetry 99 98 98 Laboratory Results - last 24 hr 08/28/19 06:05 Segmented Neutrophils Not Reportable Lymphocytes RETAIL CLERK Monocytes RETAIL CLERK The pt is doing well no complaints. Her pain is well controlled. She is ambulating, +flatus. She is breast/bottlefeeding. She is unsure about control. O VSSAF Gen: AAOx3 NAD CV: RRR no g/m/r Lungs: CTAB no w/r/r Abd: +BS soft NT/ND Ext: no c/c/e A: POD#2 s/p RLTCS Anemia P: D/C home
[2019-08-29 08:53] VITALS: BP 112/62
[2019-08-29] MEDS: MYLICON PO SCH (09:02)
[2019-08-29] MEDS: FERROUS SULFATE PO SCH (09:02)
== END 2019-08-29 10:55 | disposition home or self-care (01) | DRG 788 ==
LOC: LD 04:48
PROVIDERS: ADMIT Obstetrics & Gynecology; ATTEND Obstetrics & Gynecology